=== PATIENT | male | born 1990 | race Caucasian/White ===

== ENCOUNTER 2020-03-03 06:47 | Emergency (ER) | payer OTHER ==
[~2020-03-03] VITALS: Ht 180.3 cm; Wt 81.6 kg
--- NOTE | 2020-03-03 07:00 | NUR ---
INITIAL PT CONTACT. PT PRESENTS TO ED C/O HEART BURN, INSOMNIA, N/V AND LEFT SCIATIC PAIN X5 DAYS. HX OF SAME. PT STATES HE HAS F/U WITH A MD FOR "STOMACH ISSUES AND DX WITH CANNABIS INDUCED VOMITING, BUT I STOPPED SMOKING WEED ABOUT 1 MONTH AGO AND THIS STILL HAS BEEN HAPPENING". PT UPRIGHT ON GURNEY WITH S.O. AT BEDSIDE. CONTINUOUS PULSE OX IN PLACE. WARM BLANKET PROVIDED. NAD, VSS. PT DENIES ANY NEEDS AT THIS TIME. ERP AT BEDSIDE.
--- NOTE | 2020-03-03 07:25 | NUR ---
PT TO IMAGING
[2020-03-03] MEDS ORDERED: METHOCARBAMOL 750 MG TABLET ONE (07:28)
[2020-03-03] MEDS ORDERED: KETOROLAC 30 MG/1 ML ONE (07:28)
[2020-03-03] MEDS ORDERED: ONDANSETRON 2MG/ML, 2ML ONE (07:29)
[2020-03-03] MEDS ORDERED: MAALOX/HYOSCYAMINE/LIDOCAINE 45 ML BTL ONE (07:29)
[2020-03-03] MEDS ORDERED: FAMOTIDINE 20 MG/2 ML ONE (07:29)
[2020-03-03] MEDS ORDERED: ONDANSETRON 2MG/ML, 2ML IVPush ONE (07:30)
[2020-03-03] MEDS ORDERED: SODIUM CHLORIDE 0.9% 1,000ML IVBOLUS ONE (07:30)
[2020-03-03] MEDS ORDERED: MAALOX/HYOSCYAMINE/LIDOCAINE 45 ML BTL PO ONE (07:30)
[2020-03-03] MEDS ORDERED: KETOROLAC 30 MG/1 ML IVPush ONE (07:30)
[2020-03-03] MEDS ORDERED: METHOCARBAMOL 750 MG TABLET PO ONE (07:30)
[2020-03-03] MEDS ORDERED: FAMOTIDINE 20 MG/2 ML IVPB ONE (07:30)
[2020-03-03 07:36] LABS: BASOPHILS % (AUTO) 0 % (0-1); EOSINOPHILS % (AUTO) 0 % (1-7); LYMPHOCYTES % (AUTO) 22 % (22-44); MEAN CORPUSCULAR HEMOGLOBIN 30.9 pg (27.5-34.5); MEAN CORPUSCULAR HGB CONC 35.5 g/dL (33.2-36.2); MEAN PLATELET VOLUME 7.5 fL (7.4-10.4); MONOCYTES % (AUTO) 13 % (2-9); NEUTROPHILS % (AUTO) 65 % (42-75); PLATELET COUNT 292 x10^3/uL (130-400); RED BLOOD COUNT 6.14 x10^6/uL (4.38-5.82); RED CELL DISTRIBUTION WIDTH 13.3 % (9.4-14.8)
--- NOTE | 2020-03-03 07:40 | NUR ---
x-ray, US delay
--- NOTE | 2020-03-03 07:48 | NUR ---
US AT BEDSIDE
[2020-03-03 07:50] LABS: ALANINE AMINOTRANSFERASE 35 U/L (12-78); ALBUMIN 4.3 g/dL (3.4-5.0); ANION GAP 11 mmol/L (5-15); CHLORIDE 89 mmol/L (98-107); CREATININE 1.09 mg/dL (0.7-1.3)
[2020-03-03 07:52] LABS: ALKALINE PHOSPHATASE 56 U/L (45-117); BILIRUBIN,TOTAL 1.2 mg/dL (0.2-1.0)
[2020-03-03 07:57] LABS: MD SCAN
--- NOTE | 2020-03-03 08:00 | NUR ---
PT SITTING UPRIGHT ON GURNEY. NAD, VSS. PT TREY ANY NEEDS AT THIS TIME. CALL LIGHT WITHIN REACH.
[2020-03-03 08:41] VITALS: BP 122/86
--- NOTE | 2020-03-03 08:41 | NUR ---
Patient given discharge instructions and they have confirmed that they understand the instructions. Patient ambulatory with steady gait.
== END 2020-03-03 08:55 | disposition home or self-care (01) ==
LOC: ED 08:14
DX: S29.012A Strain of muscle and tendon of back wall of thorax, initial encounter (principal); R11.2 Nausea with vomiting, unspecified; E86.0 Dehydration; K29.70 Gastritis, unspecified, without bleeding; E87.1 Hypo-osmolality and hyponatremia; M54.32 Sciatica, left side; F17.210 Nicotine dependence, cigarettes, uncomplicated; K21.9 Gastro-esophageal reflux disease without esophagitis; X58.XXXA Exposure to other specified factors, initial encounter; Y93.89 Activity, other specified; Y92.89 Other specified places as the place of occurrence of the external cause; Y99.8 Other external cause status
CPT/HCPCS: 36415; 72110; 76700; 80053; 83690; 85025; 96374; 96375; 99285; J1885; J2405; J7030